=== PATIENT | male | born 1980 | race Caucasian/White ===

== ENCOUNTER 2025-02-17 09:15 | Day surgery (SDC) | payer MEDICAID ==
[~2025-02-17] VITALS: Ht 182.9 cm; Wt 102.6 kg
[2025-02-17] VITALS (8 sets, daily range): BP systolic 98–119; BP diastolic 69–83; PULSE 76–91; RESP 12–24; TEMP 97.7; O2SAT 95–100
[2025-02-17] MEDS ORDERED: simethicone 40mg/0.6ml oral drops 15ml PO ONE (10:10)
[2025-02-17] MEDS ORDERED: NO HOME MEDS (10:21)
[2025-02-17] MEDS: ringers solution, lacted 1,000 ML IV SCH (10:21)
[2025-02-17] MEDS ORDERED: METH-603 PO (10:34)
[2025-02-17] MEDS ORDERED: LIDOcaine 2% (20mg/ml) 5ml vial ONE (11:55)
[2025-02-17] MEDS ORDERED: propofol 1000mg/100ml bottle 100 ML IV ONE (11:57)
[2025-02-17] MEDS ORDERED: propofol inj 20 ML IV ONE ×3 (12:06)
== END 2025-02-17 13:29 | disposition home or self-care (01) ==
LOC: PAS 09:15
PROVIDERS: ATTEND Internal Medicine Gastroenterology
DX: Z12.11 Encounter for screening for malignant neoplasm of colon (principal); K62.1 Rectal polyp; J45.909 Unspecified asthma, uncomplicated; F17.210 Nicotine dependence, cigarettes, uncomplicated; Z90.89 Acquired absence of other organs; Z98.890 Other specified postprocedural states
CPT/HCPCS: 45385; J2003; J2704; J7120; Z7512; A4615; A4620